=== PATIENT | male | born 1985 | race Caucasian/White ===

== ENCOUNTER 2018-04-18 08:12 | Outpatient (CLI) | payer BC ==
[2018-04-18] MEDS ORDERED: Iopamidol 370 76% 100 ML VIAL ONE (09:00)
--- NOTE | 2018-04-18 21:52 | RAD ---
CHEST TWO VIEWS 04/18/18 The heart is mildly large. There is no vascular congestion, edema, or pleural effusion. The mediastin um was unremarkable. The trachea is midline. The bony structures were unremarkable. IMPRESSION: Mild cardiac enlargement. POS: HOME
--- NOTE | 2018-04-18 22:19 | CT ---
CT ANGIO OF THE ABDOMEN 04/18/[address] of the abdomen was performed after a bolus of IV contrast. Arterial phase images were obtai kathleen. Axial slices were done initially with coronary and sagittal reconstructions being done later. The caliber of the abdominal aorta and proximal iliac arteries is normal throughout. The celiac arter y, superior mesenteric and inferior mesenteric arteries all fill appropriately. The main renal arteri es were unremarkable in appearance. There are also accessory renal arteries bilaterally which supply the lower pole of each kidney. The perfusion of each kidney seems roughly equal. Ultrasound is actual ly a bit more sensitive in finding renal artery stenosis than CT, however. The remainder of the exam is unremarkable. The lungs bases are clear except for some mild dependent a telectasis. The liver, spleen, pancreas, adrenal glands, gallbladder all appear normal. The kidneys s howed no mass or hydronephrosis. The bowel was unremarkable. There is some mild concentric bulging of the L4-L5 and L5-S1 discs. IMPRESSION: 1. No specific vascular or renal abnormalities seen of concern. 2. 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 POS: HOME
== END 2018-04-18 08:13 | disposition home or self-care (01) ==
LOC: BURCT 08:12
PROVIDERS: ATTEND Nurse Practitioner
DX: I10 Essential (primary) hypertension (principal); I51.7 Cardiomegaly
CPT/HCPCS: 71046; 74175